=== PATIENT | male | born 1970 | race Caucasian/White ===

== ENCOUNTER 2017-02-14 09:11 | Day surgery (SDC) | payer OTHER ==
[~2017-02-14] VITALS: Ht 172.7 cm; Wt 81.6 kg
[~2017-02-14 09:11] MED LIST: ATORVASTATIN CA20 MG PO
[2017-02-14 09:45] VITALS: BP 130/92
[2017-02-14] MEDS ORDERED: PERCOCET 5/31 TABLET PO (12:58)
[2017-02-14 14:35] VITALS: BP 136/88
[2017-02-14 15:43] VITALS: BP 134/93
[2017-02-14 18:30] VITALS: BP 129/86
== END 2017-02-14 18:35 | disposition home or self-care (01) ==
LOC: SDC 09:11
PROC: 0WUF4JZ Supplement Abdominal Wall with Synthetic Substitute, Percutaneous Endoscopic Approach (ICD-10-PCS; principal; 2017-02-14)
DX: K43.9 Ventral hernia without obstruction or gangrene (principal); K92.1 Melena; E78.5 Hyperlipidemia, unspecified; Z82.49 Family history of ischemic heart disease and other diseases of the circulatory system; Z83.71 Family history of colonic polyps; Z83.49 Family history of other endocrine, nutritional and metabolic diseases; Z83.79 Family history of other diseases of the digestive system
CPT/HCPCS: C1781; J0330; J0690; J1170; J2250; J2405; J2710; J3010